=== PATIENT | male | born 1990 | race African-American/Black ===

== ENCOUNTER 2017-05-31 19:38 | Emergency (ER) | payer BC, MEDICARE, OTHER ==
[~2017-05-31] VITALS: Ht 188 cm; Wt 83.9 kg
[~2017-05-31 19:38] MED LIST: KEPPRA500 MG ORAL
[2017-05-31] MEDS ORDERED: PERCOCET 10-321 EACH ORAL (19:49)
[2017-05-31 19:50] VITALS: BP 124/72
--- NOTE | 2017-05-31 20:49 | Emergency Room Report ---
History of Present Illness General Chief Complaint: Sore Throat Source: Patient Present Illness HPI This patient was evaluated and managed by DR. JULIAN please see his note for history of present illness, PE , decision-making as well as final disposition. Allergies: Coded Allergies: No Known Allergies (Unverified , 05/16/14) Nursing Documentation-[facility] Hx Seizures: Yes Physical Exam Vital Signs Date Time Temp Pulse Resp B/P (MAP) Pulse Ox O2 Delivery O2 Flow Rate FiO2 05/31/17 19:46 98.2 80 14 124/72 99 Room Air 98.2 Sp02 EP Interpretation: reviewed, normal General Appearance: mild distress ENT: tonsillar swelling - Right sided unilateral tonsillar swelling, Uvula has mild left sided shift. , pharyngeal erythema Medical Decision Making PA Attestation Dr. Ogden is my supervising Physician whom patient management has been discussed with. ER Course This patient was fully evaluated and managed by DR. JULIAN please see his note for history of present illness, PE , decision-making as well as final disposition. I performed a very brief Rapid medical Assessment which reviewed vitals to be WNL, and visible right sided LONG TERM- I initiated order for IM steroids and pt. was signed out to Dr. Julian. I did not auscultate Heart or lungs. Last Vital Signs Date Time Temp Pulse Resp B/P (MAP) Pulse Ox O2 Delivery O2 Flow Rate FiO2 05/31/17 19:46 98.2 80 14 124/72 99 Room Air 98.2 Signed Out To: Kiera Kaye May 31, 2017 20:49
[2017-05-31] MEDS ORDERED: Dexamethasone 4mg/ml vial IM ONE ×2 (21:00→21:15)
[2017-05-31] MEDS ORDERED: Norco 5mg/325mg tab ORAL ONE (21:15)
[2017-05-31] MEDS ORDERED: Augmentin 875mg Tab ORAL ONE (21:15)
[2017-05-31] MEDS ORDERED: HYDROCODON-ACE1 EA15 ORAL (22:00)
[2017-05-31] MEDS ORDERED: AUGMENTIN 875-1 EAC1 ORAL (22:00)
--- NOTE | 2017-05-31 22:01 | Emergency Room Report ---
History of Present Illness General Chief Complaint: Sore Throat Source: Patient Present Illness HPI Is a 27-year-old male with no past medical history. He presents with chief complaint of sore throat. Onset for last 5 days. He has subjective fever. Pain is 10 out of 10. Worse with swallowing. No nausea no vomiting. No diarrhea. Decreased by mouth intake because of the pain. Allergies: Coded Allergies: No Known Allergies (Unverified , 05/16/14) Patient History Past Medical History: see triage record, old chart reviewed Past Surgical History: none Pertinent Family History: none Social History: Denies: smoking Immunizations: other Reviewed Nursing Documentation: PMH: Agreed, PSxH: Agreed Nursing Documentation-PMH Hx Seizures: Yes Review of Systems Constitutional: Reports: fever - Subjective Eye: Denies: eye pain, blurred vision ENT: Reports: throat pain, throat swelling, Denies: ear pain, nose congestion Respiratory: Denies: cough, shortness of breath Cardiovascular: Denies: chest pain, palpitations Gastrointestinal: Denies: abdominal pain, diarrhea, nausea, vomiting Musculoskeletal: Denies: back pain, joint pain Skin: Denies: rash Neurological: Denies: headache, numbness Endocrine: Denies: increased thirst, increased urine Hematologic/Lymphatic: Denies: easy bruising All Other Systems: negative except mentioned in HPI Physical Exam Vital Signs Date Time Temp Pulse Resp B/P (MAP) Pulse Ox O2 Delivery O2 Flow Rate FiO2 05/31/17 19:46 98.2 80 14 124/72 99 Room Air 98.2 vitals normal Sp02 EP Interpretation: reviewed, normal General Appearance: well appearing, no apparent distress, alert Head: normocephalic, atraumatic Eyes: bilateral eye PERRL, bilateral eye EOMI ENT: hearing grossly normal, tonsillar swelling, pharyngeal erythema, tonsillar exudate, other - No significant trismus. Right peritonsillar abscess Neck: full range of motion, supple, no meningismus, tender - Tender right adenopathy Respiratory: chest non-tender, lungs clear, normal breath sounds Cardiovascular #1: regular rate, rhythm, no murmur Gastrointestinal: normal bowel sounds, non tender, no mass, no organomegaly, no bruit, non-distended Musculoskeletal: back normal, gait/station normal, normal range of motion Psychiatric: mood/affect normal Skin: warm/dry Medical Decision Making Diagnostic Impression: Primary Impression: Peritonsillar abscess ER Course Patient presents with a right peritonsillar abscess. This is early. He has no significant trismus. There is not much that I see to I&D. He is tolerating liquids we will discharge home. He will receive Decadron and Augmentin here. Last Vital Signs Date Time Temp Pulse Resp B/P (MAP) Pulse Ox O2 Delivery O2 Flow Rate FiO2 05/31/17 21:30 98.2 05/31/17 19:50 14 124/72 99 Room Air 05/31/17 19:46 80 Status: improved Disposition: HOME, SELF-CARE Condition: Stable Scripts Hydrocodone/Acetaminophen 5-325* (HYDROCODONE/ACETAMINOPHEN 5-325*) 1 Each Tablet 1 TAB ORAL Q6H Y for For Pain, #20 TAB 0 Refills Prov: RIOS JULIAN M.D. 05/31/17 Amoxicillin/Potassium Clav 875-125* (AUGMENTIN 875-125 TABLET*) 1 Each Tablet 1 TAB ORAL TWICE A DAY, #14 TAB Prov: RIOS JULIAN M.D. 05/31/17 Additional Instructions: Followup with your DrLinda in 2 to 3 days. Return if worse. RIOS JULIAN M.D. May 31, 2017 22:00
[2017-05-31 22:12] VITALS: BP 124/72
== END 2017-05-31 22:12 | disposition home or self-care (01) ==
LOC: EMR 20:00
DX: J36 Peritonsillar abscess (principal); Z86.69 Personal history of other diseases of the nervous system and sense organs
CPT/HCPCS: 96372; 99284; J1100